=== PATIENT | male | born 1965 | race Two or more races ===

== ENCOUNTER 2017-04-06 08:04 | Emergency (ER) | payer MEDICAID ==
[~2017-04-06] VITALS: Ht 190.5 cm; Wt 86.2 kg
[2017-04-06 08:31] VITALS: BP 113/73
== END 2017-04-06 09:30 | disposition home or self-care (01) ==
LOC: ED 08:04
DX: S96.812A Strain of other specified muscles and tendons at ankle and foot level, left foot, initial encounter (principal); Y93.01 Activity, walking, marching and hiking; Y92.89 Other specified places as the place of occurrence of the external cause; Y99.8 Other external cause status
CPT/HCPCS: J1885; Q0092